=== PATIENT | male | born 1995 | race Caucasian/White ===

== ENCOUNTER 2017-11-29 21:55 | Emergency (ER) | payer SELFPAY ==
[~2017-11-29] VITALS: Ht 175.3 cm; Wt 72.9 kg
[2017-11-29 21:56] VITALS: BP 131/79
[2017-11-29] MEDS ORDERED: HYDROcodone/APAP 5/325 TABLET ONE (22:25)
[2017-11-29] MEDS ORDERED: HYDROcodone/APAP 5/325 TABLET PO ONE (22:30)
== END 2017-11-29 22:45 | disposition home or self-care (01) ==
LOC: ED 22:10
DX: K01.1 Impacted teeth (principal); K08.89 Other specified disorders of teeth and supporting structures
CPT/HCPCS: 99283